=== PATIENT | female | born 1970 | race Caucasian/White ===

== ENCOUNTER → 2016-10-05 | Outpatient (CLI) | payer BC ==
[~2016-10-05] MED LIST: PRENTAB26 PO
== END | disposition home or self-care (01) ==
LOC: C.PAPS 10:34
PROVIDERS: ATTEND Obstetrics & Gynecology
DX: Z01.419 Encounter for gynecological examination (general) (routine) without abnormal findings (principal)

== ENCOUNTER → 2017-02-09 | Outpatient (CLI) | payer BC ==
--- NOTE | 2017-02-09 14:15 | MAMMOGRAPHY REPORT ---
BILATERAL DIGITAL DIAGNOSTIC MAMMOGRAM TOMOSYNTHESIS WITH CAD AND TARGETED RIGHT ULTRASOUND: 7 CLINICAL HISTORY: 46 year old woman presents for follow-up of hypoechoic breast tissue versus stromal fibrosis in the 10:30 right breast. Also time of annual bilateral screening mammogram. TECHNIQUE: Bilateral breast tomosynthesis in addition to standard 2D mammography was performed. Curre nt study was also evaluated with a Computer Aided Detection (CAD) system. COMPARISON: Comparison is made to exams dated: 08/20/2016 ultrasound, 02/18/2016 ultrasound, 6 mammogram, 02/07/2016 mammogram, 10/02/2014 mammogram, and 09/01/2013 mammogram - [facility]. BREAST COMPOSITION: The tissue of both breasts is extremely dense, which lowers the sensitivity of m ammography. FINDINGS: There is no evidence of a new suspicious mass, architectural distortion or cluster of suspi cious microcalcifications in the breasts. Targeted ultrasound was performed in the 10:30 right breast, 2 cm from the nipple, to reevaluate the lobulated parallel hypoechoic to isoechoic tissue seen on prior ultrasounds. In the 10:30 axis, 2 cm from the nipple, there is an 8.8 x 2.9 x 7.2 mm lobulated hypoechoic focal area of breast tissue snehal derick stromal fibrosis. This has not significantly changed in size or appearance comparing to the prio r ultrasounds dating back to 02/16/2016 at which time it measured 10.9 x 8.5 x 3.3 mm. We discussed the possibility of adding whole breast screening ultrasound to the patient's annual screening regimen , given her extremely dense breast parenchyma, and it can reassess the 10:30 right breast in one year at the time of whole breast screening ultrasound. IMPRESSION: ACR BI-RADS CATEGORY 2: BENIGN, TARGETED ULTRASOUND ACR BI-RADS CATEGORY 2: BENIGN 1. Stable bilateral mammograms, without mammographic evidence of malignancy. 2. Stable hypoechoic tissue versus stromal fibrosis in the 10:30 right breast that is unchanged for one year and most likely benign. 3. Bilateral screening mammography is recommended in one year. At that time, bilateral whole breast ultrasound is recommended for additional screening (30 minutes). Particular attention can also be p aid to the 10:30 right breast at the time of the breast ultrasound, to ensure at least 2 years of sta bility. These results and recommendations were discussed with the patient at the time of the exam. Approximately 10% of breast cancers are not detected with mammography. A negative mammographic report should not delay biopsy if a clinically suggestive mass is present. Anne-Marie Truong M.D. ay/:02/09/2017 12:47:53 Soil Science Professor: Jeannie WREN(Carie)(Santy), [facility] letter sent: Normal 1/2 BI-RADS Code: ACR BI-RADS Category 2: Benign Ultrasound BI-RADS: ACR BI-RADS Category 2: Benign
== END | disposition home or self-care (01) ==
LOC: C.MAMM 09:59
PROVIDERS: ATTEND Obstetrics & Gynecology
DX: R92.2 Inconclusive mammogram (principal); N64.89 Other specified disorders of breast

== ENCOUNTER → 2018-03-29 | Outpatient (CLI) | payer OTHER ==
--- NOTE | 2018-03-30 13:39 | MAMMOGRAPHY REPORT ---
BILATERAL DIGITAL SCREENING MAMMOGRAM TOMOSYNTHESIS WITH CAD: 03/29/2018 CLINICAL HISTORY: Routine screening. Patient has no complaints. TECHNIQUE: The study was acquired using full field digital technology and interpreted from soft copy. Breast tomosynthesis in addition to standard 2D mammography was performed. Current study was also ev aluated with a Computer Aided Detection (CAD) system. COMPARISON: Comparison is made to exams dated: 02/09/2017 mammogram, 02/18/2016 mammogram, 02/07/2016 m ammogram, 02/09/2017 ultrasound, 08/20/2016 ultrasound, and 02/18/2016 ultrasound - [facility]. BREAST COMPOSITION: The tissue of both breasts is heterogeneously dense, which may obscure small mass es. FINDINGS: There is a 3.4 mm nodular asymmetry in the far posterior right breast along the posterior n ipple line on the CC view (CC tomosynthesis slice 32/41), for which additional spot compression tomos ynthesis views and possible ultrasound are recommended for further characterization. No other suspicious mass, architectural distortion or cluster of microcalcifications is seen. Incidental note is made of interval increased size of a dermal lesion in the upper outer anterior lef t breast. IMPRESSION: ACR BI-RADS CATEGORY 0: INCOMPLETE EVALUATION: NEED ADDITIONAL IMAGING EVALUATION The 3.4 mm nodular asymmetry in the right breast along the posterior nipple line on the CC view needs additional evaluation. The patient will be called to schedule an appointment. Some breast cancers are not detected with mammography. A negative mammographic report should not wood y biopsy if a clinically suggestive mass is present. Anne-Marie Truong M.D. ay/:03/29/2018 17:34:21 Guard Entrance Registrar: RT Waqar(Carie)([place]), [facility] letter sent: Addl Imaging 0 BI-RADS Code: ACR BI-RADS Category 0: Incomplete Evaluation: Need Additional Imaging Evaluation
== END | disposition home or self-care (01) ==
LOC: C.MAMM 10:14
PROVIDERS: ATTEND Obstetrics & Gynecology
DX: Z12.31 Encounter for screening mammogram for malignant neoplasm of breast (principal); R92.8 Other abnormal and inconclusive findings on diagnostic imaging of breast

== ENCOUNTER → 2018-04-13 | Outpatient (CLI) | payer OTHER ==
--- NOTE | 2018-04-13 13:39 | MAMMOGRAPHY REPORT ---
UNILATERAL RIGHT DIGITAL DIAGNOSTIC MAMMOGRAM TOMOSYNTHESIS AND TARGETED RIGHT ULTRASOUND: 04/13/2018 CLINICAL HISTORY: Callback from screening mammogram for right breast asymmetry. TECHNIQUE: Breast tomosynthesis in addition to standard 2D mammography was performed. Spot compressi on right CC and MLO 2D and tomosynthesis images were obtained. COMPARISON: Comparison is made to exams dated: 03/29/2018 mammogram, 02/09/2017 mammogram, 02/18/2016 ma mmogram, 02/07/2016 mammogram, 02/18/2016 ultrasound, and 10/02/2014 mammogram - [facility]. BREAST COMPOSITION: The tissue of right breast is extremely dense, which lowers the sensitivity of ma mmography. FINDINGS: The previously described nodular asymmetry seen within the right posterior breast on the cc view effa nicholas to baseline appearance on the additional spot compression views. Normal fibroglandular tissue is seen in this region, without evidence of a suspicious mass, architectural distortion, or other suspi cious mammographic abnormality. The asymmetry is felt to localize to the superior breast based on th e tomosynthesis localizer bar from the screening mammogram. Targeted ultrasound was performed of the right breast in the region of the mammographic asymmetry see n on one view only, in the right 12:00, central, and 6:00 breast. No suspicious masses or other susp icious sonographic abnormalities are evident. No sonographic correlate for the asymmetry is seen. IMPRESSION: ACR BI-RADS CATEGORY 2: BENIGN, ULTRASOUND ACR BI-RADS CATEGORY 2: BENIGN The right breast asymmetry effaces on the additional spot compression view, without corresponding derick picious sonographic abnormality evident. Findings are benign and may represent normal fibroglandular tissue or a small intramammary lymph node. There is no mammographic or sonographic evidence of avery gnancy. A 1 year screening mammogram is recommended.(04/14/2019) The patient has been verbally notified of the results. Some breast cancers are not detected with mammography. A negative mammographic report should not wood y biopsy if a clinically suggestive mass is present. Alondra Reynolds M.D. /:04/13/2018 09:39:20 Quantometer Operator: RT Riki(R)(M), [facility]; Alondra Reynolds MD, [facility] letter sent: Normal 08/24 OVERALL STUDY BIRADS: 2 Benign
== END | disposition home or self-care (01) ==
LOC: C.MAMM 09:12
PROVIDERS: ATTEND Obstetrics & Gynecology
DX: N64.9 Disorder of breast, unspecified (principal)